=== PATIENT | female | born 1965 | race Caucasian/White ===

== ENCOUNTER 2021-03-26 09:18 | Day surgery (SDC) | payer BC, OTHER ==
--- NOTE | 2021-03-20 14:03 | HP ---
DATE OF SURGERY: 03/26/2021 HISTORY OF PRESENT ILLNESS: The patient is a 56 year-old female presents for colonoscopy. Last colonoscopy in 2016 was normal. She denies any GI signs and symptoms at this time. Reports that her mom had colon cancer and at age 37. PAST MEDICAL HISTORY: None. PAST SURGICAL HISTORY: Tubal ligation. ALLERGIES: NKDA. MEDICATIONS: None. FAMILY HISTORY: Colon cancer. Stroke. SOCIAL HISTORY: Negative. REVIEW OF SYSTEMS: CONSTITUTIONAL: Denies fever or chills. CHEST: Denies shortness of breath. CVS: Denies chest pain. ABDOMEN: Denies abdominal pain. INTEGUMENTARY: Negative. PHYSICAL EXAMINATION: GENERAL: No acute distress. CHEST: Nonlabored. No shortness of breath. CVS: Regular rate and rhythm. ABDOMEN: Soft, nontender. EXTREMITIES: No edema. NEUROLOGIC: Alert. PSYCHIATRIC: Appropriate. IMPRESSION: Screening and positive family history of colon cancer. PLAN: Colonoscopy with Dr. Jose C Anne. As dictated by Gwendolyn Berry NP.
[~2021-03-26 09:18] MED LIST: Lactated Ringers 1,000 ML IV SCH
[2021-03-26] MEDS ORDERED: DIPRIVAN 200 MG/20 ML IV ONE (10:53)
[2021-03-26 12:53] VITALS: O2SAT 95
[2021-03-26 12:55] VITALS: BP 149/80; PULSE 63
--- NOTE | 2021-03-26 13:55 | OP ---
SURGERY DATE/TIME: 03/26/2021 1102 PREOPERATIVE DIAGNOSIS: Five year follow up. POSTOPERATIVE DIAGNOSIS: One polyp 1 cm distal sigmoid. PROCEDURE: Colonoscopy complete to cecum with hot polypectomy x1. SURGEON: Jose C Anne M.D. ANESTHESIA: MAC. COMPLICATIONS: None. CONDITION: Stable. INDICATION: A patient requiring evaluation. DESCRIPTION OF PROCEDURE: Taken to endoscopy. MAC sedation provided. Glucagon was also added for spastic colon. Excellent prep was present. The scope advanced to the ileocecal valve to the cecum. Ascending, hepatic, transverse, splenic, descending, sigmoid, distal sigmoid one - 1 cm polyp was taken with hot biopsy forceps to extinction. Rectum and anus satisfactory. PLAN: Follow up in three years. She does have family history of colon cancer and she has had polyps on each colonoscopy.
== END 2021-03-26 12:40 | disposition home or self-care (01) ==
LOC: SDC 09:18
PROVIDERS: ATTEND Surgery
DX: Z12.11 Encounter for screening for malignant neoplasm of colon (principal); Z09 Encounter for follow-up examination after completed treatment for conditions other than malignant neoplasm; Z86.010 Personal history of colon polyps; Z80.0 Family history of malignant neoplasm of digestive organs; K63.5 Polyp of colon
CPT/HCPCS: J2704

== ENCOUNTER 2024-06-14 07:19 | Day surgery (SDC) | payer BC ==
--- NOTE | 2024-06-13 11:00 | HP ---
HISTORY AND PHYSICAL HISTORY OF PRESENT ILLNESS: The patient is a 59-year-old female who presents with 3-year followup colonoscopy. Her mother at age 37 of colon cancer. She has no colon complaints. She does have some heartburn and some chest that feels tight after eating. PAST MEDICAL HISTORY: GERD, colon polyp. HOME MEDICATIONS: Famotidine. ALLERGIES: Negative. PAST SURGICAL HISTORY: Tubal ligation. SOCIAL HISTORY: Negative. FAMILY HISTORY: Colon cancer, stroke. REVIEW OF SYSTEMS: CONSTITUTIONAL: Denies fever or chills. CHEST: Denies shortness of breath. CARDIAC: Denies chest pain. ABDOMEN: Denies abdominal pain. PHYSICAL EXAMINATION: GENERAL: No acute distress. CARDIOVASCULAR: Regular rate and rhythm. RESPIRATORY: Nonlabored. No shortness of breath. ABDOMEN: Soft. ASSESSMENT: Epigastric pain, family history of colon cancer, history of polyp. PLAN: EGD, colonoscopy with Dr. Jose C Anne. This report was dictated for Dr. Anne by Gwendolyn Berry NP.
[2024-06-14] MEDS ORDERED: Lactated Ringers 1,000 ML IV ONE (07:29)
[2024-06-14] MEDS: Lactated Ringers 1,000 ML IV SCH (07:32)
[2024-06-14 07:34] VITALS: RESP 18; TEMP 97.6
[2024-06-14] MEDS ORDERED: DIPRIVAN 200 MG/20 ML IV ONE ×2 (09:29→09:40)
[2024-06-14] MEDS ORDERED: Versed 2 MG/2 ML Injection ONE (09:29)
[2024-06-14] MEDS ORDERED: Xylocaine-Mpf 2% 5 Ml Vial ONE (09:29)
[2024-06-14 10:42] VITALS: BP 138/65; PULSE 50; O2SAT 100
--- NOTE | 2024-06-14 18:49 | OP ---
SURGERY DATE/TIME: 06/14/2024 4309 - 3502 PREOPERATIVE DIAGNOSES: Gastritis, family history of colon cancer with no screening. PROCEDURES: 1) Esophagogastroduodenoscopy. 2) Colonoscopy to the cecum. SURGEON: Jose C Anne MD REFERRING PRACTITIONER: TODD Oliver FINDINGS: 1) Mild hemorrhagic gastritis. 2) Moderate internal hemorrhoids. ANESTHESIA: General. COMPLICATIONS: None. CONDITION: Stable. DESCRIPTION OF PROCEDURE AND FINDINGS: Patient was taken to endoscopy suite, left lateral decubitus position. Scope introduced. Pharyngoesophageal junction normal. Esophagus normal down to the EG junction. EG junction satisfactory. There was a mild hemorrhagic gastritis in the fundus, body, and antrum. Pylorus normal. Duodenal bulb normal. Second portion normal. Scope looped upon itself. EG junction normal from below. Scope withdrawn. Anal digital examination was satisfactory. Scope advanced to the cecum. Base of the cecum, ileocecal valve, and appendiceal orifice were normal. Ascending, hepatic, transverse, splenic, descending, sigmoid, rectum, and anus with moderate internal hemorrhoids. Patient tolerated the procedure satisfactorily. Was placed on Protonix. Findings discussed with the family in the waiting room. PLAN: A 5-year followup C-scope.
== END 2024-06-14 10:56 | disposition home or self-care (01) ==
LOC: SDC 07:19
PROVIDERS: ATTEND Surgery
DX: Z12.11 Encounter for screening for malignant neoplasm of colon (principal); Z80.0 Family history of malignant neoplasm of digestive organs; K29.70 Gastritis, unspecified, without bleeding; K64.8 Other hemorrhoids
CPT/HCPCS: J2250; J2704